=== PATIENT | female | born 1980 | race Caucasian/White ===

== ENCOUNTER 2018-10-29 18:09 | Observation (INO) | payer BC ==
[2018-10-29 18:38] LABS: Glucose,Whole Blood 193 mg/dL (75-99)
[2018-10-29] MEDS ORDERED: SODIUM CHLORIDE 0.9% 1,000 ML IV STA (18:50)
[2018-10-29] MEDS ORDERED: LORazepam 2 MG/ML INJ IV STA (18:51)
[2018-10-29] MEDS ORDERED: NITROGLYCERIN SL TABS 0.4 MG TAB SUBLINGUAL STA (18:52)
--- NOTE | 2018-10-29 18:58 | ED ---
Chest Pain HPI - General Chief Complaint: Chest Pain Stated Complaint: chest pain Time Seen by Provider: 10/29/18 18:35 Source: patient, RN notes reviewed Mode of arrival: wheelchair Limitations: no limitations - History of Present Illness Initial Comments: This a 38-year-old female with a history of a hysterectomy in the past who states she had the onset of chest pain while she was eating dinner prior to arrival. Chest tightness and pressure feeling like an elephant on her chest very severe short of breath with that she's had chills no fevers or sweats. She was noted by staff to be hyperventilating upon arrival and complains some pain radiating to the left arm some numbness left arm. She apparently had another episode similar to this 4 days ago [facility] No cough or phlegm production patient does have a history of COPD she is a smoker and does Vape a lot MD Complaint: chest pain, other - Related Data Home Medications Medication Instructions Recorded Confirmed No Known Home Medications 10/29/18 10/29/18 Allergies Allergy/AdvReac Type Severity Reaction Status Date / Time codeine Allergy Rash/Hives Verified 10/29/18 18:50 sulfamethoxazole Allergy Unknown Verified 10/29/18 18:51 [From ] trimethoprim [From ] Allergy Unknown Verified 10/29/18 18:51 Review of Systems ROS Statement: Those systems with pertinent positive or pertinent negative responses have been documented in the HPI. ROS Other: All systems not noted in ROS Statement are negative. EKG Findings - EKG Results: EKG: interpreted by TRINO (Sinus tachycardia and EKG showing a rate of 104. Interval 132 QRS duration 80 QT since QTC 360/4:15 right atrial enlargement nonspecific ST configuration.) Past Medical History Past Medical History: COPD History of Any Multi-Drug Resistant Organisms: None Reported Past Surgical History: Hysterectomy Past Psychological History: No Psychological Hx Reported Smoking Status: Current every day smoker Past Alcohol Use History: None Reported Past Drug Use History: None Reported General Exam - General Exam Comments Initial Comments: This is a well-developed well-nourished awake alert anxious appearing female she is noted to be hyperventilating she does complain of numbness and tingling around her face and lips and hands Limitations: no limitations General appearance: alert, anxious, in distress Head exam: Present: atraumatic, normocephalic, normal inspection Eye exam: Present: normal appearance, PERRL, EOMI. Absent: scleral icterus, conjunctival injection, periorbital swelling ENT exam: Present: mucous membranes dry Neck exam: Present: normal inspection. Absent: tenderness, meningismus, lymphadenopathy Respiratory exam: Present: chest wall tenderness, decreased breath sounds. Absent: respiratory distress, wheezes, rales, rhonchi, stridor Cardiovascular Exam: Present: regular rate, normal rhythm, normal heart sounds. Absent: systolic murmur, diastolic murmur, rubs, gallop, clicks GI/Abdominal exam: Present: soft, normal bowel sounds. Absent: distended, tenderness, guarding, rebound, rigid Extremities exam: Present: normal inspection, full ROM, normal capillary refill. Absent: tenderness, pedal edema, joint swelling, calf tenderness Back exam: Present: normal inspection Neurological exam: Present: alert, oriented X3, CN II-XII intact Psychiatric exam: Present: normal affect, normal mood Skin exam: Present: warm, dry, intact, normal color. Absent: rash Course Vital Signs 10/29/18 10/29/18 10/29/18 18:31 19:00 19:30 Temperature 98.7 F Pulse Rate 89 79 89 Respiratory 16 12 11 L Rate Blood Pressure 127/63 127/63 104/62 O2 Sat by Pulse 100 98 98 Oximetry 10/29/18 20:00 Temperature Pulse Rate 73 Respiratory 14 Rate Blood Pressure 99/64 O2 Sat by Pulse 98 Oximetry - Reevaluation(s) Reevaluation #1: 10/29/18 21:19 Patient did not get much relief from her chest discomfort though she feels less anxious Chest Pain MDM - MDM I did review the imaging and report no acute findings. Patient does have a strong family history of heart disease the initial workup appears be negative she will be admitted for evaluation of chest pain. Critical Care Time Critical Care Time: Yes Critical Care Time: 31 minutes of critical care time which includes initial presentation with history physical labs x-rays several reevaluation patient response to therapy admission orders discussed with the admitting physician documentation of the above. Disposition Clinical Impression: Unstable angina pectoris, Atypical chest pain Disposition: ADMITTED IP TO THIS [facility] Condition: Stable Referrals: Carey Sloan MD [Primary Care Provider] - 1-2 days
[2018-10-29 19:17] LABS: Basophils # (A) 0.1 k/uL (0-0.2); Basophils % (A) 1 %; Eosinophils # (A) 0.4 k/uL (0-0.7); Eosinophils % (A) 5 %; HCT 40.7 % (34.0-46.0); HGB 13.8 gm/dL (11.4-16.0); Lymphocytes # (A) 2.1 k/uL (1.0-4.8); Lymphocytes % (A) 28 %; MCH 30.9 pg (25.0-35.0); MCHC 33.8 g/dL (31.0-37.0); MCV 91.5 fL (80.0-100.0); Mean Platelet Volume 7.1; Monocytes # (A) 0.2 k/uL (0-1.0); Monocytes % (A) 3 %; Neutrophils # (A) 4.9 k/uL (1.3-7.7); Neutrophils % (A) 63 %; Platelet Count 383 k/uL (150-450); RBC 4.45 m/uL (3.80-5.40); RDW 11.7 % (11.5-15.5); WBC 7.7 k/uL (3.8-10.6)
[2018-10-29 19:23] LABS: Appearance,Urine Clear (Clear); Bilirubin,Urine Negative (Negative); Blood,Urine Negative (Negative); Color,Urine Colorless; Glucose,Urine (UA) Negative (Negative); Ketones,Urine Negative (Negative); Leukocyte Esterase,Urine Negative (Negative); Nitrite,Urine Negative (Negative); Protein,Urine Negative (Negative); Specific Gravity,Urine 1.004 (1.001-1.035); Urobilinogen,Urine <2.0 mg/dL (<2.0)
[2018-10-29 19:29] LABS: ALT 30 U/L (9-52); AST 25 U/L (14-36); Albumin 5.1 g/dL (3.5-5.0); Alkaline Phosphatase 60 U/L (38-126); Anion Gap 14 mmol/L; Blood Urea Nitrogen 15 mg/dL (7-17); Calcium 10.9 mg/dL (8.4-10.2); Carbon Dioxide 21 mmol/L (22-30); Chloride 108 mmol/L (98-107); Glucose 135 mg/dL (74-99); Sodium 143 mmol/L (137-145); Total Bilirubin 1.4 mg/dL (0.2-1.3); Total Protein 8.4 g/dL (6.3-8.2)
[2018-10-29 19:32] LABS: D-Dimer 0.32 mg/L FEU (<0.60); Partial Thromboplastin Time 24.5 sec (22.0-30.0); Prothrombin Time 10.8 sec (9.0-12.0)
[2018-10-29 19:34] LABS: Creatine Kinase 44 U/L (30-135)
[2018-10-29 19:47] LABS: Creatine Kinase MB <0.2 ng/mL (0.0-2.4); Troponin I <0.012 ng/mL (0.000-0.034)
--- NOTE | 2018-10-29 19:57 | XR ---
EXAMINATION TYPE: XR chest 2V DATE OF EXAM: 10/29/2018 COMPARISON: NONE HISTORY: Chest pain TECHNIQUE: Frontal and lateral views of the chest are obtained. FINDINGS: Heart and mediastinum are normal. Lungs are clear. Diaphragm is normal. There are chest le ads. Bony thorax appears normal. IMPRESSION: Normal chest
[2018-10-29] MEDS ORDERED: ASPIRIN 81 MG PO STA (21:21)
[2018-10-29] MEDS ORDERED: NITROGLYCERIN SL TABS 0.4 MG TAB SUBLINGUAL PRN (21:21)
[2018-10-29] MEDS ORDERED: HEPARIN SODIUM,PORCINE 5,000 UNIT/ML 1 ML VIAL IV ONE (21:21)
[2018-10-29] MEDS ORDERED: HEPARIN SOD,PORK IN 0.45% NACL 25,000 UNIT in 0.45% NACL 1 250ML.BAG IV SCH (21:30)
[2018-10-30 00:38] VITALS: BMI 19.5
[2018-10-30 01:37] LABS: Creatine Kinase 40 U/L (30-135)
[2018-10-30 01:51] LABS: Creatine Kinase MB <0.2 ng/mL (0.0-2.4); Troponin I <0.012 ng/mL (0.000-0.034)
[2018-10-30] MEDS: NITROGLYCERIN OINT 1 INCH/GM PACKET TOPICAL SCH ×6 (02:26→23:15)
[2018-10-30] MEDS: ASPIRIN 325 MG TAB PO SCH (07:57)
[2018-10-30 08:01] LABS: Cholesterol 173 mg/dL (<200); HDL Cholesterol 65 mg/dL (40-60); LDL Cholesterol,Calculated 100 mg/dL (0-99); Triglycerides 38 mg/dL (<150)
[2018-10-30 08:06] LABS: Creatine Kinase 36 U/L (30-135)
[2018-10-30 08:20] LABS: Creatine Kinase MB <0.2 ng/mL (0.0-2.4); Troponin I <0.012 ng/mL (0.000-0.034)
[2018-10-30] MEDS: ACETAMINOPHEN TAB 325 MG TAB PO PRN ×2 (09:01→15:50)
--- NOTE | 2018-10-30 10:39 | P.CRDCN ---
History of Present Illness Consult date: 10/30/18 Requesting physician: Washington Campos Consult reason: chest pain Chief complaint: Chest pain History of present illness: This is a 38-year-old female with no documented history of hypertension, no diabetes, no hyperlipidemia, she used to smoke 2 packs of cigarettes a day, she's down to one pack every 2 weeks, but she does smoke E- cigarettes. She denies any alcohol use, no drug use. Patient presents to the hospital with symptoms of atypical chest discomfort which she describes as a tightness in the chest which has been persistent for 3 or 4 days, she also describes a feeling of water running in her chest and an ache in her axilla area that is constant. She denies any associated shortness of breath, no diaphoresis or nausea. She states that she was at [facility], waited for 15 hours, and signed out AMA. This was on Wednesday of this week. Chest x-ray here is normal. EKG shows a sinus tachycardia with nonspecific ST-T wave changes. Blood pressure on arrival here 126/60 with a heart rate in the 80s, 100% on 2 L of oxygen. White blood cell count 7.7, hemoglobin 13.8, platelet count 383. D-dimer 0.3. Sodium 143, potassium 4.0, BUN 15, creatinine 0.8. Troponins negative 3. Cholesterol 173, LDL 100, HDL 65, triglycerides 38. At the time of my examination this morning, she continues to complain of this pain. Past Medical History Past Medical History: COPD Additional Past Medical History / Comment(s): frequent kidney functions History of Any Multi-Drug Resistant Organisms: None Reported Past Surgical History: Hysterectomy, Tubal Ligation Past Anesthesia/Blood Transfusion Reactions: No Reported Reaction Past Psychological History: No Psychological Hx Reported Smoking Status: Current every day smoker Past Alcohol Use History: None Reported Past Drug Use History: None Reported - Past Family History Father Additional Family Medical History / Comment(s): murmur, keisha Mother Family Medical History: CVA/TIA Additional Family Medical History / Comment(s): CVA at 53 Medications and Allergies Home Medications Medication Instructions Recorded Confirmed Type No Known Home Medications 10/29/18 10/29/18 History Allergies Allergy/AdvReac Type Severity Reaction Status Date / Time ciprofloxacin [From Cipro] Allergy Confusion Verified 10/30/18 00:40 codeine Allergy Rash/Hives Verified 10/29/18 18:50 sulfamethoxazole Allergy Unknown Verified 10/29/18 18:51 [From ] trimethoprim [From ] Allergy Unknown Verified 10/29/18 18:51 Physical Exam Vitals: Vital Signs Temp Pulse Pulse Resp BP BP Pulse Ox 10/30/18 08:00 97.8 F 67 16 107/69 100 10/30/18 04:30 99/51 10/30/18 04:00 16 10/30/18 03:59 98.5 F 70 16 84/45 99 10/29/18 23:30 16 10/29/18 23:07 98.1 F 69 16 99/63 100 10/29/18 21:30 86 19 100/64 100 10/29/18 20:00 73 14 99/64 98 10/29/18 19:30 89 11 L 104/62 98 10/29/18 19:00 79 12 127/63 98 10/29/18 18:31 98.7 F 89 16 127/63 100 Intake and Output 10/29/18 10/30/18 10/30/18 22:59 06:59 14:59 Intake Total 48.95 Balance 48.95 Intake: Intake, IV Titration 48.95 Amount Heparin Sod,Pork in 0.45% 48.95 NaCl 25,000 unit In 0.45 % NaCl 1 250ml.bag @ 12 UNITS/KG/HR 6.6 mls/hr IV .[facility]H [facility] Rx#:[id number] Other: Voiding Method Toilet Toilet # Voids 2 Weight 55 kg 55 kg PHYSICAL EXAMINATION: GENERAL: 38-year-old female in no acute distress at the time of my examination HEENT: Head is atraumatic, normocephalic. Pupils equal, round. Sclera anicteric. Conjunctiva are clear. Mucous membranes of the mouth are moist. Neck is supple. There is no elevated jugular venous pressure.No carotid bruit is heard. HEART EXAMINATION: Heart S1, S2 normal. No murmur or gallop heard. CHEST EXAMINATION: Lungs are clear to auscultation and precussion. No chest wall tenderness is noted on palpation or with deep breathing. ABDOMEN: Soft, nontender. Bowel sounds are heard. No organomegaly noted. EXTREMITIES: 2+ peripheral pulses with no evidence of peripheral edema and no calf tenderness noted. NEUROLOGIC patient is awake, alert and oriented X3. . Results 10/29/18 18:56 10/29/18 18:56 Cardiac Enzymes 10/29/18 10/29/18 10/30/18 Range/Units 18:56 18:56 00:46 AST 25 (14-36) U/L CK-MB (CK-2) <0.2 <0.2 (0.0-2.4) ng/mL Troponin I <0.012 <0.012 (0.000-0.034) ng/mL 10/30/18 Range/Units 07:18 AST (14-36) U/L CK-MB (CK-2) <0.2 (0.0-2.4) ng/mL Troponin I <0.012 (0.000-0.034) ng/mL Coagulation 10/29/18 10/30/18 Range/Units 18:56 04:16 PT 10.8 (9.0-12.0) sec APTT 24.5 40.3 H (22.0-30.0) sec Lipids 10/30/18 Range/Units 07:18 Triglycerides 38 (<150) mg/dL Cholesterol 173 (<200) mg/dL HDL Cholesterol 65 H (40-60) mg/dL CBC 10/29/18 Range/Units 18:56 WBC 7.7 (3.8-10.6) k/uL RBC 4.45 (3.80-5.40) m/uL Hgb 13.8 (11.4-16.0) gm/dL Hct 40.7 (34.0-46.0) % Plt Count 383 (150-450) k/uL Comprehensive Metabolic Panel 10/29/18 Range/Units 18:56 Sodium 143 (137-145) mmol/L Potassium 4.0 (3.5-5.1) mmol/L Chloride 108 H (98-107) mmol/L Carbon Dioxide 21 L (22-30) mmol/L BUN 15 (7-17) mg/dL Creatinine 0.87 (0.52-1.04) mg/dL Glucose 135 H (74-99) mg/dL Calcium 10.9 H (8.4-10.2) mg/dL AST 25 (14-36) U/L ALT 30 (9-52) U/L Alkaline Phosphatase 60 (38-126) U/L Total Protein 8.4 H (6.3-8.2) g/dL Albumin 5.1 H (3.5-5.0) g/dL Current Medications Generic Name Dose Route Start Last Admin Trade Name Freq PRN Reason Stop Dose Admin Acetaminophen 650 mg 10/30/18 08:07 10/30/18 09:01 Tylenol Tab PO 650 mg Q6HR PRN Administration Fever and/ or Pain Aspirin 325 mg 10/30/18 09:00 10/30/18 07:57 Aspirin PO 325 mg DAILY EFRAIN Administration Heparin Sodium/Sodium Chloride 250 mls @ 6.6 mls/hr 10/29/18 21:30 10/30/18 05:32 25,000 unit/ Sodium Chloride IV 14 units/kg/hr .Q24H EFRAIN 7.7 mls/hr Titration Protocol 12 UNITS/KG/HR Sodium Chloride 1,000 mls @ 20 mls/hr 10/29/18 21:30 Saline 0.9% IV .[facility]H [facility] Nitroglycerin 1 inch 10/30/18 00:00 10/30/18 05:47 Nitro-Bid Oint TOPICAL Not Given Q6HR [facility] Nitroglycerin 0.4 mg 10/29/18 21:21 Nitrostat SUBLINGUAL Q5M PRN Chest Pain Intake and Output 10/29/18 10/30/18 10/30/18 22:59 06:59 14:59 Intake Total 48.95 Balance 48.95 Intake: Intake, IV Titration 48.95 Amount Heparin Sod,Pork in 0.45% 48.95 NaCl 25,000 unit In 0.45 % NaCl 1 250ml.bag @ 12 UNITS/KG/HR 6.6 mls/hr IV .Q[facility]H [facility] Rx#:[id number] Other: Voiding Method Toilet Toilet # Voids 2 Weight 55 kg 55 kg 10/29/18 18:56 10/29/18 18:56 EKG Interpretations (text) EKG shows a sinus tachycardia with nonspecific ST-T wave changes. Assessment and Plan Plan: Assessment and plan #1 atypical chest discomfort, troponins negative 3. EKG shows normal sinus rhythm with nonspecific ST-T wave changes. D-dimer negative #2 nicotine dependence and use of vaping Plan We will discontinue the IV heparin, order an echocardiogram with Doppler study, recommend patient undergo stress echocardiographic study tomorrow. If negative she should be able to be discharged home from cardiology's perspective, she can follow-up with her primary care physician post discharge. DNP note has been reviewed, I agree with a documented findings and plan of care. Patient was seen and examined.
[2018-10-30 16:08] VITALS: RESP 16
[2018-10-30] MEDS ORDERED: TEMAZEPAM 15 MG CAP PO PRN (17:14)
[2018-10-30] MEDS ORDERED: ALPRAZolam 0.25 MG TAB PO PRN (17:14)
--- NOTE | 2018-10-30 22:49 | HP ---
HISTORY AND PHYSICAL DATE OF SERVICE: 10/30/2018. CHIEF COMPLAINT: Chest pain. HISTORY OF PRESENT ILLNESS: This is a 38-year-old woman with a past history of COPD, history of tubal ligation, being for Dr. Sloan in the outpatient setting, complains of chest pain. The pain was felt in the anterior part of the chest which was a pressure-type of sensation with heavy pressure. The pain occurred over the last 3 to 4 days. Patient apparently went to [facility] but signed herself out AMA. Currently the pain is severe. The patient came to [facility] and was admitted for further evaluation and treatment. There is no radiation. No history of dyspnea on exertion. The initial troponins are negative. The patient was admitted for further evaluation and treatment. The initial EKG showed sinus tachycardia and minimal ST changes. There is no history of fever rigors, no history of headache, loss of consciousness or seizures. PAST MEDICAL HISTORY: History of COPD, history of hysterectomy and tubal ligation. HOME MEDICATIONS: None. ALLERGIES: CIPRO, CODEINE, SEPTRA. FAMILY HISTORY: History of CVA, TIA, history of murmur in the family. SOCIAL HISTORY: History of smoking. No history of alcohol intake. REVIEW OF SYSTEMS: ENT: No diminished hearing or vision. CARDIOVASCULAR: As mentioned. RESPIRATORY: As mentioned. GI: No nausea or vomiting. : No dysuria or hematuria. SKIN: No rash. NERVOUS SYSTEM: No numbness or weakness. ALLERGY/IMMUNOLOGY: None. MUSCULOSKELETAL: As mentioned. HEMATOLOGY/ONCOLOGY: Negative. ENDOCRINE: No history of diabetes or hypothyroidism. CONSTITUTIONAL: As mentioned. LYMPHATIC: As mentioned. PSYCHIATRY: As mentioned. PHYSICAL EXAMINATION: GENERAL: Alert, oriented x3. VITAL SIGNS: Pulse is 88, blood pressure 104/60, respirations 16, temperature 98.8, pulse ox 98% on room air. HEENT: Conjunctivae normal. NECK: Supple. No JVD. CARDIOVASCULAR: S1 and S2 muffled. LUNGS: Breath sounds diminished at the bases. No rhonchi, no crackles. ABDOMEN: Soft, nontender. No mass palpable. EXTREMITIES: Legs no edema. No swelling. NERVOUS SYSTEM: Higher functions as mentioned earlier. Moves all four limbs. No focal deficits. SKIN: No rashes. JOINTS: No active deforming or arthropathy. LABS: At this time shows WBC 7.2, hemoglobin 13.8 sodium 143, potassium 4, glucose 135/93, LDL is 100, HDL 65. ASSESSMENT: 1. Chest pain, possible unstable angina. 2. Elevated random blood sugar. 3. History of nicotine dependence. 4. History of chronic obstructive pulmonary disease. 5. History of hysterectomy and tubal ligation. RECOMMENDATIONS: Recommend to continue current management and symptomatic treatment. Will rule out myocardial infarction and angina. Unstable angina protocol. Cardiology consultation. Otherwise, guarded prognosis because of multiple complex medical issues. Further recommendations to follow. See orders for further details. MMODL / IJN: [id number] /
[2018-10-30] MEDS: SODIUM CHLORIDE 0.9% 1,000 ML IV SCH (23:14)
[2018-10-31] MEDS ORDERED: PANTOPRAZOLE 40 MG TABLET PO SCH (07:30)
[2018-10-31 07:41] LABS: Basophils # (A) 0.1 k/uL (0-0.2); Basophils % (A) 1 %; Eosinophils # (A) 0.7 k/uL (0-0.7); Eosinophils % (A) 11 %; HCT 35.7 % (34.0-46.0); HGB 11.6 gm/dL (11.4-16.0); Lymphocytes # (A) 2.9 k/uL (1.0-4.8); Lymphocytes % (A) 47 %; MCHC 32.4 g/dL (31.0-37.0); MCV 95.6 fL (80.0-100.0); Mean Platelet Volume 6.8; Monocytes # (A) 0.2 k/uL (0-1.0); Monocytes % (A) 4 %; Neutrophils # (A) 2.1 k/uL (1.3-7.7); Neutrophils % (A) 34 %; Platelet Count 321 k/uL (150-450); RBC 3.74 m/uL (3.80-5.40); RDW 11.8 % (11.5-15.5); WBC 6.1 k/uL (3.8-10.6)
[2018-10-31 07:48] LABS: Potassium 4.5 mmol/L (3.5-5.1)
[2018-10-31 07:49] LABS: Anion Gap 8 mmol/L; Blood Urea Nitrogen 18 mg/dL (7-17); Calcium 9.6 mg/dL (8.4-10.2); Carbon Dioxide 24 mmol/L (22-30); Chloride 110 mmol/L (98-107); Glucose 91 mg/dL (74-99); Sodium 142 mmol/L (137-145)
[2018-10-31 07:54] VITALS: TEMP 97.6
[2018-10-31] MEDS ORDERED: NICOTINE 14MG/24HR PATCH TRANSDERM SCH (09:00)
--- NOTE | 2018-10-31 11:57 | P.PN ---
Subjective This is a pleasant 38-year-old female with no significant past medical history other than chronic nicotine dependence. She presented to the hospital with symptoms of atypical chest discomfort. She is seen and examined in no acute distress. She states last night while she got up to the restroom she felt an odd discomfort in her chest similar to how she felt prior to coming to the hospital. She denies shortness of breath, dizziness, palpitations, nausea , vomiting or diaphoresis associated with the pain. The symptoms subsided on their own after getting back to bed and she fell asleep. She continues to complain of and dull ache in the left thoracic rib region with no specific aggravating or alleviating factors. The pain is not reproducible on palpitation or with deep inspiration. Blood pressure 100/67 heart rate 52 afebrile maintaining oxygen saturation on room air. Laboratory data reviewed, WBC 6.1, hemoglobin 11.6, d-dimer negative, sodium 142, potassium 4.5, creatinine 0.9, cardiac enzymes negative 3, LDL 100 and HDL 65. Currently maintained on aspirin 325 mg daily. GENERAL: Well-appearing, well-nourished and in no acute distress. NECK: Supple without JVD or thyromegaly. LUNGS: Breath sounds clear to auscultation bilaterally. Respiration equal and unlabored. No wheezes, rales or rhonchi. HEART: Regular rate and rhythm without murmurs, rubs or gallops. S1 and S2 heard. EXTREMITIES: Normal range of motion, no edema. No clubbing or cyanosis. Peripheral pulses intact. ASSESSMENT Chest pain, atypical. Acute coronary event has been ruled out with no EKG evidence of ischemia and negative cardiac enzymes. Chronic nicotine dependence PLAN Proceed with stress echocardiogram to assess for stress-induced cardiac ischemia. If abnormal will consider proceeding with coronary angiography. If stress test is normal she is stable from a cardiac perspective. Smoking cessation recommended. Follow up with Dr. Centeno upon discharge. Nurse Practitioner note has been reviewed, I agree with a documented findings and plan of care. Patient was seen and examined. Objective - Vital Signs Vital signs: Vital Signs Temp 97.6 F 10/31/18 07:15 Pulse 52 L 10/31/18 07:15 Resp 16 10/31/18 07:15 BP 100/67 10/31/18 07:15 Pulse Ox 100 10/31/18 07:15 Intake & Output 10/30/18 10/31/18 10/31/18 18:59 06:59 18:59 Other: Voiding Method Toilet Toilet Toilet # Voids 1 - Labs CBC & Chem 7: 10/31/18 06:59 10/31/18 06:59 Labs: Abnormal Lab Results - Last 24 Hours (Table) 10/31/18 10/31/18 Range/Units 06:59 06:59 RBC 3.74 L (3.80-5.40) m/uL Chloride 110 H (98-107) mmol/L BUN 18 H (7-17) mg/dL
[2018-10-31] MEDS: NITROGLYCERIN OINT 1 INCH/GM PACKET TOPICAL SCH (12:13)
[2018-10-31 12:21] VITALS: BP 101/64; PULSE 78
[2018-10-31] MEDS: ASPIRIN 325 MG TAB PO SCH (12:23)
--- NOTE | 2018-11-01 06:59 | ECHOS ---
STRESS ECHOCARDIOGRAM DATE OF SERVICE: 10/31/2018 INDICATIONS: Unstable angina, chest pain. MEDICATIONS: BASELINE HEART RATE: 61 BASELINE BLOOD PRESSURE: 96/54 MAXIMUM HEART RATE: 170 MAXIMUM BLOOD PRESSURE: 144/48 85% MPHR: 156 100% MPHR: 183 METS: 7.9 MAXIMUM STAGE REACHED: III TOTAL EXERCISE TIME: 6-1/2 minutes CLINICAL INFORMATION: Baseline EKG revealed normal sinus rhythm without significant ST-T changes. Patient walked on a standard Rafat protocol for a total duration of 6-1/2 minutes achieved a maximal heart rate of 170 beats per minute developed fatigue and shortness of breath. She did not have any angina or arrhythmia. There was evidence of some upsloping ST- segment changes noted as exercise progressed. These upsloping ST-segment changes are very nonspecific and do not represent ischemia. There was no associated angina. Within a minute in the recovery periods, her EKG returned to baseline. This is therefore an equivocal and negative stress test with limited exercise capacity. Baseline echo images revealed normal wall motion and wall thickening of all segments. At peak exercise, there was good augmentation of left ventricular wall motion and wall thickening of all segments suggesting that there is no evidence of stress-induced ischemia on this study. FINAL IMPRESSION: 1. By EKG criteria, this is a equivocal stress test without any clear-cut evidence of ischemia. Patient did not have angina. She walked for about 6-1/2 minutes, which is considered as a limited exercise capacity for her age. There were no clear-cut EKG changes to indicate ischemia. 2. Normal stress echocardiogram. MMODL / IJN: [id number] /
--- NOTE | 2018-11-01 07:45 | ECHOF ---
Referral Reason:cp MEASUREMENTS -------- HEIGHT: 167.6 cm WEIGHT: 54.9 kg BP: 94/55 RVIDd: 1.9 cm (< 3.3) IVSd: 0.8 cm (0.6 - 1.1) LVIDd: 4.1 cm (3.9 - 5.3) LVPWd: 0.8 cm (0.6 - 1.1) IVSs: 1.0 cm LVIDs: 2.9 cm LVPWs: 1.1 cm LAESV Index (A-L): 20.15 ml/m Ao Diam: 2.8 cm (2.0 - 3.7) AV Cusp: 1.9 cm (1.5 - 2.6) LA Diam: 2.2 cm (2.7 - 3.8) EPSS: 0.6 cm MV E Jaun: 0.68 m/s MV DecT: 205 ms MV A Juan: 0.43 m/s MV E/A Ratio: 1.60 RAP: 5.00 mmHg RVSP: 8.34 mmHg MV EF SLOPE: 130.25 mm/s (70 - 150) MV EXCURSION: 2.12 cm (> 18.000) FINDINGS -------- Sinus rhythm. This was a technically good study. The left ventricular size is normal. Left ventricular wall thickness is normal. Overall left vent ricular systolic function is normal with, an EF between 55 - 60 %. The right ventricle is normal in size and function. Normal LA size by volume 22+/-6 ml/m2. The right atrium is normal in size. The aortic valve is trileaflet, and appears structurally normal. No aortic stenosis or regurgitation. The mitral valve is normal. There is trace to mild mitral regurgitation. Trace tricuspid regurgitation present. Right ventricular systolic pressure is normal at < 35 mmHg. There is no evidence of pulmonary hypertension. Trace/mild (physiologic) pulmonic regurgitation. The aortic root size is normal. Normal inferior vena cava with normal inspiratory collapse consistent with estimated right atrial pre ssure of 5 mmHg. There is no pericardial effusion. CONCLUSIONS -------- 1. Sinus rhythm. 2. This was a technically good study. 3. The left ventricular size is normal. 4. Left ventricular wall thickness is normal. 5. Overall left ventricular systolic function is normal with, an EF between 55 - 60 %. 6. Normal LA size by volume 22+/-6 ml/m2. 7. The aortic valve is trileaflet, and appears structurally normal. No aortic stenosis or regurgitati on. 8. There is trace to mild mitral regurgitation. 9. Trace tricuspid regurgitation present. 10. Right ventricular systolic pressure is normal at < 35 mmHg. 11. There is no evidence of pulmonary hypertension. 12. Trace/mild (physiologic) pulmonic regurgitation. 13. The aortic root size is normal. 14. There is no pericardial effusion. ASSISTANT LIBRARIAN: Dustin Brown RDCS
--- NOTE | 2018-11-01 07:51 | DS ---
DISCHARGE SUMMARY DATE OF SERVICE: 10/31/2018 FINAL DIAGNOSES: 1. Chest pain with negative stress echo with no evidence of reversible ischemia. 2. Elevated random blood sugar. 3. History of nicotine dependence. 4. History of chronic obstructive pulmonary disease. 5. History of hysterectomy and tubal ligation. DISCHARGE DISPOSITION: The patient will be discharged in a stable condition with guarded prognosis. HISTORY OF PRESENT ILLNESS: This is a 38-year-old woman with a past medical history of multiple medical problems who was admitted with chest pain, myocardial infarction ruled out. Her stress echo was apparently normal. The patient is being followed by Dr. Sloan in the outpatient setting. On exam, vitals are stable. CARDIOVASCULAR SYSTEM: S1, S2. NERVOUS SYSTEM: No focal deficits. Discharge diet is cardiac diet. Activity limited until followup. Follow up with Dr. Sloan in 2-3 days. Follow up with Dr. Centeno as advised. No medications. MMODL / IJN: [id number] /
== END 2018-10-31 14:55 | disposition home or self-care (01) ==
LOC: EC 18:09 → 1SOBS 21:21
PROVIDERS: ADMIT Internal Medicine; ATTEND Internal Medicine
DX: R07.89 Other chest pain (principal); R06.02 Shortness of breath; R20.0 Anesthesia of skin; R06.4 Hyperventilation; R20.2 Paresthesia of skin; R73.9 Hyperglycemia, unspecified; J44.9 Chronic obstructive pulmonary disease, unspecified; Z88.5 Allergy status to narcotic agent; Z88.1 Allergy status to other antibiotic agents; Z82.3 Family history of stroke; F17.210 Nicotine dependence, cigarettes, uncomplicated; F17.290 Nicotine dependence, other tobacco product, uncomplicated; Z88.2 Allergy status to sulfonamides
CPT/HCPCS: 96366 ×2; 96376; 96361; 96365; 96375; 99291; 36415; 93005; 93306; 93351; 85379; 83880; 80061; 80053; 80048; 85652; 82550 ×2; 82553 ×2; 83735; 84484 ×2; 85025 ×2; 85610; 85730 ×2; 86140; 81003; 71046; G0378 ×3; S4990; J2060; J1644 ×2

== ENCOUNTER 2021-09-10 15:29 | Emergency (ER) | payer BC, OTHER ==
[2021-09-10 16:04] VITALS: BP 93/56; PULSE 64; RESP 20; TEMP 98.6
[2021-09-10] MEDS ORDERED: LIDOCAINE 1% INJ 10MG/ML (20 ML MDV) SQ ONE (16:20)
[2021-09-10] MEDS ORDERED: LIDOCAINE/EPINEPHR/TETRACAINE 5 ML BOTTLE TOPICAL ONE (16:20)
[2021-09-10] MEDS ORDERED: HYDROmorphone 1 MG/ML 1 ML SYRINGE IM STA (16:20)
--- NOTE | 2021-09-10 18:34 | ED ---
Wound/Laceration HPI - General Chief Complaint: Wound/Laceration Stated Complaint: [facility]/Hand Laceration Time Seen by Provider: 09/10/21 16:08 Source: patient, RN notes reviewed Mode of arrival: ambulatory Limitations: no limitations - History of Present Illness Initial Comments: 41-year-old female that presents to the emergency room with a left thumb lac eration from a box printer at work. She was evaluated by [facility] and sent here for laceration repair. Patient notes she does have good flexion with minimal pain but on extension of her thumb has significant pain 8-9 out of 10. She denied any other issues or complaints. She notes she is up-to-date on her tetanus vaccine. She denied any weakness numbness tingling. She denied chest pain shortness of breath headache nausea vomiting diarrhea constipation fever fatigue chills. - Related Data Home Medications Medication Instructions Recorded Confirmed No Known Home Medications 10/29/18 10/29/18 Allergies Allergy/AdvReac Type Severity Reaction Status Date / Time ciprofloxacin [From Cipro] Allergy Confusion Verified 09/10/21 16:01 codeine Allergy Rash/Hives Verified 09/10/21 16:01 sulfamethoxazole Allergy Unknown Verified 09/10/21 16:01 [From Septra] trimethoprim [From Septra] Allergy Unknown Verified 09/10/21 16:01 Review of Systems ROS Statement: Those systems with pertinent positive or pertinent negative responses have been documented in the HPI. ROS Other: All systems not noted in ROS Statement are negative. Past Medical History Past Medical History: COPD Additional Past Medical History / Comment(s): frequent kidney infections, barrets disease, aneursym History of Any Multi-Drug Resistant Organisms: None Reported Past Surgical History: Hysterectomy, Tubal Ligation Past Anesthesia/Blood Transfusion Reactions: No Reported Reaction Past Psychological History: No Psychological Hx Reported Smoking Status: Vaper Past Alcohol Use History: None Reported Past Drug Use History: None Reported - Past Family History Father Additional Family Medical History / Comment(s): murmur, keisha Mother Family Medical History: CVA/TIA Additional Family Medical History / Comment(s): CVA at 53 General Exam Limitations: no limitations General appearance: alert, in no apparent distress Head exam: Present: atraumatic, normocephalic, normal inspection Eye exam: Present: normal appearance, PERRL, EOMI. Absent: scleral icterus, conjunctival injection, periorbital swelling ENT exam: Present: normal exam, mucous membranes moist Neck exam: Present: normal inspection Respiratory exam: Present: normal lung sounds bilaterally. Absent: respiratory distress, wheezes, rales, rhonchi, stridor Cardiovascular Exam: Present: regular rate, normal rhythm, normal heart sounds. Absent: systolic murmur, diastolic murmur, rubs, gallop, clicks Extremities exam: Present: normal inspection, full ROM, normal capillary refill. Absent: tenderness, pedal edema, joint swelling, calf tenderness Neurological exam: Present: alert, oriented X3 Psychiatric exam: Present: normal affect, normal mood Skin exam: Present: warm, dry, intact, normal color. Absent: rash Expanded Type of lesion: Present: laceration (Dorsal aspect left thumb measuring approximately 5 cm, well approximated, nonbleeding.) Course Vital Signs 09/10/21 16:01 Temperature 98.6 F Pulse Rate 64 Respiratory 20 Rate Blood Pressure 93/56 O2 Sat by Pulse 99 Oximetry Procedures - Laceration Laceration #1 Consent Obtained: verbal consent Indication: laceration Site: hand (dorsal aspect left thumb) Size (cm): 5 Description: linear Depth: simple, single layer Anesthetic Used: lidocaine 1% Anesthesia Technique: local infiltration Amount (mls): 5 Pre-repair: irrigated extensively Type of Sutures: nylon Size of Sutures: 4-0 Number of Sutures: 6 Technique: simple, interrupted Patient Tolerated Procedure: well, no complications Medical Decision Making - Medical Decision Making 41-year-old female with a left thumb laceration from box printer. Lidocaine, 1 mg of Dilaudid, x-ray ordered. Patient tolerated suturing well. X-ray negative for any acute fractures dislocations. Case discussed with Dr. Gregory, patient can discharge home. - Radiology Data Radiology results: report reviewed, image reviewed Interpreted by me: xray left thumb: No acute fractures dislocations.. Disposition Clinical Impression: Laceration Disposition: HOME SELF-CARE Condition: Stable Instructions (If sedation given, give patient instructions): Laceration (ED), Care For Your Stitches (ED) Additional Instructions: Please return to the Emergency Department if symptoms worsen or any other concerns. Follow-up with primary care in 1-2 days. Follow-up with hand specialist as soon as possible. Keep area clean and dry. Is patient prescribed a controlled substance at d/c from ED?: No Referrals: Carey Sloan MD [Primary Care Provider] - 1-2 days Peter Yung DO [Doctor of Osteopathic Medicine] - 1-2 days Time of Disposition: 18:34
--- NOTE | 2021-09-10 18:46 | XR ---
EXAMINATION TYPE: XR finger LT DATE OF EXAM: 09/10/2021 COMPARISON: NONE HISTORY: . Left thumb injury . TECHNIQUE: AP, oblique, and lateral coned-down views of the left thumb. FINDINGS: No acute fracture. No dislocation. Joint spaces and alignment are normal. Normal mineraliza tion. No significant soft tissue swelling. IMPRESSION: No acute fracture or dislocation of the left thumb.
== END 2021-09-10 19:14 | disposition home or self-care (01) ==
LOC: EC 15:29
DX: S61.012A Laceration without foreign body of left thumb without damage to nail, initial encounter (principal); J44.9 Chronic obstructive pulmonary disease, unspecified; F17.290 Nicotine dependence, other tobacco product, uncomplicated; Z88.5 Allergy status to narcotic agent; Z88.1 Allergy status to other antibiotic agents; Z88.2 Allergy status to sulfonamides; Z90.710 Acquired absence of both cervix and uterus; Z98.51 Tubal ligation status; W26.8XXA Contact with other sharp object(s), not elsewhere classified, initial encounter
CPT/HCPCS: 99283; 96372; 12002; 73140; J2001; J1170

== ENCOUNTER 2024-01-23 18:08 | Emergency (ER) | payer OTHER ==
[2024-01-23 18:20] VITALS: BP 111/71; PULSE 81; RESP 18; TEMP 98.2
[2024-01-23] MEDS: ACETAMINOPHEN TAB 500 MG TAB PO STA (18:57)
[2024-01-23] MEDS: MORPHINE SULFATE 4 MG/ML SYRINGE IM STA (18:58)
--- NOTE | 2024-01-23 19:14 | XR ---
EXAMINATION TYPE: XR ankle complete RT DATE OF EXAM: 01/23/2024 COMPARISON: None HISTORY: Fall, pain TECHNIQUE: 3 view right ankle FINDINGS: Ankle mortise is intact. Soft tissues are normal. No acute fractures or dislocations are ev ident. Follow up exams can be performed 7-10 days from acute trauma for continued pain. IMPRESSION: 1. No acute osseous abnormality right ankle
--- NOTE | 2024-01-23 19:15 | XR ---
EXAMINATION TYPE: XR foot complete RT DATE OF EXAM: 01/23/2024 COMPARISON: None HISTORY: Fall, pain TECHNIQUE: 3 view right foot FINDINGS: No acute fractures or dislocations evident. Alignment appears preserved. Joint spaces are p reserved. Soft tissues are normal. Follow up exams can be performed 7-10 days from acute trauma for continued pain. IMPRESSION: 1. No acute osseous abnormality right foot
--- NOTE | 2024-01-23 19:56 | ED ---
General Adult HPI - General Chief complaint: Extremity Injury, Lower Stated complaint: R foot injury Time Seen by Provider: 01/23/24 18:17 Source: patient Mode of arrival: ambulatory Limitations: no limitations - History of Present Illness Initial comments: 43-year-old female presenting to the ED with a chief complaint of right foot injury. Patient reports she was in the garage when her great Qasim was running up to her and asked Her right foot causing her to fall to the ground. She states that she is unsure if she twisted her ankle however when she fell to the ground denies injuring any other extremity. Denies head injury at this time. Now notes pain of her right foot especially with ambulation. No other complaints at this time. - Related Data Previous Rx's Medication Instructions Recorded Acetaminophen Tab [Tylenol] 500 mg PO Q6H #30 tablet 01/23/24 Allergies Allergy/AdvReac Type Severity Reaction Status Date / Time ciprofloxacin [From Cipro] Allergy Confusion Verified 01/23/24 18:13 codeine Allergy Rash/Hives Verified 01/23/24 18:13 sulfamethoxazole Allergy Unknown Verified 01/23/24 18:13 [From Septra] trimethoprim [From Septra] Allergy Unknown Verified 01/23/24 18:13 Review of Systems ROS Statement: Those systems with pertinent positive or pertinent negative responses have been documented in the HPI. ROS Other: All systems not noted in ROS Statement are negative. Past Medical History Past Medical History: COPD Additional Past Medical History / Comment(s): frequent kidney infections, barrets disease, aneursym History of Any Multi-Drug Resistant Organisms: None Reported Past Surgical History: Hysterectomy, Tubal Ligation Past Anesthesia/Blood Transfusion Reactions: No Reported Reaction Past Psychological History: No Psychological Hx Reported Smoking Status: Vaper Past Alcohol Use History: None Reported Past Drug Use History: None Reported - Past Family History Father Additional Family Medical History / Comment(s): murmur, keisha Mother Family Medical History: CVA/TIA Additional Family Medical History / Comment(s): CVA at 53 General Exam Limitations: no limitations General appearance: alert, in no apparent distress Eye exam: Present: normal appearance Neck exam: Present: normal inspection Respiratory exam: Present: normal lung sounds bilaterally Cardiovascular Exam: Present: regular rate GI/Abdominal exam: Present: soft Extremities exam: Present: other (Right foot shows no lateral malleolus tenderness to palpation, medial malleolus tenderness to palpation, tenderness to palpation at the base of the fifth metatarsal. Patient does have some tenderness to palpation at the navicular and midfoot. Sensation intact. DP/PT pulses intact.) Neurological exam: Present: alert, oriented X3 Skin exam: Present: warm, dry Course Vital Signs 01/23/24 18:11 Temperature 98.2 F Pulse Rate 81 Respiratory 18 Rate Blood Pressure 111/71 O2 Sat by Pulse 99 Oximetry Medical Decision Making - Medical Decision Making Was pt. sent in by a medical professional or institution (, PA, INVOICING MACHINE OPERATOR, urgent care, hospital, or correction...) When possible be specific @ -No Did you speak to anyone other than the patient for history (EMS, parent, family, police, friend...)? What history was obtained from this source @ -No Did you review nursing and triage notes (agree or disagree)? Why? @ -I reviewed and agree with nursing and triage notes Were old charts reviewed (outside hosp., previous admission, EMS record, old EKG , old radiological studies, urgent care reports/EKG's, correction records)? Report findings @ -No old charts were reviewed Differential Diagnosis (chest pain, altered mental status, abdominal pain women, abdominal pain men, vaginal bleeding, weakness, fever, dyspnea, syncope, headache, dizziness, GI bleed, back pain, seizure, CVA, palpatations, mental health, musculoskeletal)? @ -Differential Musculoskeletal Muscular strain, contusion, ligament sprain, fracture, arthritis, septic arthritis, bursitis, cellulitis, muscle spasm, nerve compression, DVT, arterial occlusion, herpes zoster, electrolyte abnormality, tumor.... This is not meant to be in all inclusive list EKG interpreted by me (3pts min.). @ -None X-rays interpreted by me (1pt min.). @ -X-rays of the foot and ankle interpreted me which revealed no evidence of acute finding. CT interpreted by me (1pt min.). @ -None done U/S interpreted by me (1pt. min.). @ -None done What testing was considered but not performed or refused? (CT, X-rays, U/S, labs)? Why? @ -None What meds were considered but not given or refused? Why? @ -None Did you discuss the management of the patient with other professionals (professionals i.e. , PA, INVOICING MACHINE OPERATOR, lab, RT, psych nurse, outreach and education social worker, proofer black and white, teacher, public relations officer, outpatient case manager)? Give summary @ -No Was smoking cessation discussed for >3mins.? @ -No Was critical care preformed (if so, how long)? @ -No Were there social determinants of health that impacted care today? How? (Homelessness, low income, unemployed, alcoholism, drug addiction, transportation, low edu. Level, literacy, decrease access to med. care, [facility], rehab)? @ -No Was there de-escalation of care discussed even if they declined (Discuss DNR or withdrawal of care, Hospice)? DNR status @ -No What co-morbidities impacted this encounter? (DM, HTN, Smoking, COPD, CAD, Cancer, CVA, ARF, Chemo, Hep., AIDS, mental health diagnosis, sleep apnea, morbid obesity)? @ -None Was patient admitted / discharged? Hospital course, mention meds given and route, prescriptions, significant lab abnormalities, going to OR and other pertinent info. @ -Discharge 43-year-old female presented to the ED with a chief complaint of right foot injury after her great Qasim stepped on it. Imaging studies reviewed. No evidence of acute fracture on x-rays of the foot or ankle. Discharged home in stable condition with prescriptions for Tylenol. Provided referral to see orthopedics. Discussed return precautions with patient verbalized agreement. Undiagnosed new problem with uncertain prognosis? @ -No Drug Therapy requiring intensive monitoring for toxicity (Heparin, Nitro, Insulin, Cardizem)? @ -No Were any procedures done? @ -No Diagnosis/symptom? @ -Right foot injury Acute, or Chronic, or Acute on Chronic? @ -Acute Uncomplicated (without systemic symptoms) or Complicated (systemic symptoms)? @ -Uncomplicated Side effects of treatment? @ -No Exacerbation, Progression, or Severe Exacerbation? @ -No Poses a threat to life or bodily function? How? (Chest pain, [place], [place], pneumonia, PE, COPD, DKA, ARF, appy, cholecystitis, CVA, Diverticulitis, Homicidal, Suicidal, threat to staff... and all critical care pts) @ -No Disposition Clinical Impression: Right foot injury Disposition: HOME SELF-CARE Condition: Good Instructions (If sedation given, give patient instructions): Foot Sprain (ED) Additional Instructions: Please return to the Emergency Department if symptoms worsen or any other concerns. Please follow-up with your PCP or orthopedics. Prescriptions: Acetaminophen Tab [Tylenol] 500 mg PO Q6H #30 tablet Is patient prescribed a controlled substance at d/c from ED?: No Referrals: Carey Sloan MD [Primary Care Provider] - 1-2 days Abdiel Heredia MD [Medical Doctor] - 1-2 days Time of Disposition: 19:45
[2024-01-23] MEDS: traMADol 50 MG STARTER PACK 3 TAB BTL PO STA (20:57)
== END 2024-01-23 21:05 | disposition home or self-care (01) ==
LOC: EC 18:08
DX: S99.921A Unspecified injury of right foot, initial encounter (principal); F17.290 Nicotine dependence, other tobacco product, uncomplicated; Z88.5 Allergy status to narcotic agent; Z88.1 Allergy status to other antibiotic agents; Z88.2 Allergy status to sulfonamides; Z88.8 Allergy status to other drugs, medicaments and biological substances; W18.30XA Fall on same level, unspecified, initial encounter
CPT/HCPCS: 73610; 73630; 99283; 96372; J2270